=== PATIENT | female | born 1990 ===

== ENCOUNTER 2023-11-25 09:34 | Inpatient (IN) | payer MEDICAID, SELFPAY ==
--- NOTE | ~2023-11-25 | CT_ITS ---
EXAMINATION: CT ABDOMEN AND PELVIS WITH CONTRAST CLINICAL INFORMATION: Left lower quadrant abdominal pain. COMPARISON: No prior CT available. Correlation made with pelvic US was performed same day. TECHNIQUE: Multidetector volumetric images were obtained from the superior aspect of the liver through the pubic symphysis following administration 85 mL of Omnipaque 350 intravenous contrast. Sagittal and coronal reformatted images were obtained on the technologist's workstation. Oral contrast: No This CT examination was performed using dose optimization techniques as appropriate, variously including the following: *Automated exposure control *Adjustment of mA and/or kV according to patient size (this includes techniques or standardized protocols for targeted exams where dose is matched to indication/reason for exam; i.e. extremities or head) *Use of iterative reconstruction technique DLP: 951 mGy-cm FINDINGS: LUNG BASES: Lung bases are clear. Heart size is normal. No effusions. GE junction appears normal. LIVER, GALLBLADDER, AND BILIARY TREE: The liver is normal in size, shape, and attenuation. No focal hepatic lesion or biliary ductal dilatation is present. The gallbladder is unremarkable with no evidence of radiopaque gallstones, gallbladder wall thickening, or obvious pericholecystic inflammatory changes. PANCREAS: Unremarkable. SPLEEN: Unremarkable. ADRENAL GLANDS: Unremarkable. KIDNEYS AND URETERS: The kidneys are normal in size, shape, and attenuation. No hydronephrosis, hydroureter, or calculi seen. No perinephric stranding. BLADDER: Unremarkable. GASTROINTESTINAL TRACT: The appendix is dilated, with mucosal enhancement, and mild periappendiceal inflammatory changes. Diameter measures up to 11 mm. Findings are consistent with acute appendicitis. No evidence of rupture, or abscess. No definite appendicolith. Mild reactive thickening in the base of the cecum is noted. Otherwise, the remainder of the colon, rectum, small bowel, and duodenum appear normal. The stomach is decompressed. ABDOMINAL WALL: There is a small periumbilical fat-containing hernia just cephalad of the umbilicus. There appear to be surgical changes related to abdominal tuck procedure within the abdominal wall small inguinal hernias are suspected although not definitive. Hypertrophy of the piriformis muscles noted left greater than right. Correlate for piriformis syndrome. LYMPH NODES: No lymphadenopathy. VASCULAR: Unremarkable. PELVIC VISCERA: There is an IUD positioned in good position within the fundus of the uterus. There are bilateral ovarian dermoids present. The left measures up to 2.7 cm, and contains a portion of a tooth. The right ovarian dermoid measures up to 2.0 cm with no calcifications. No evidence of ovarian torsion or other adnexal abnormality otherwise. No free fluid in the pelvis. OSSEOUS STRUCTURES: No acute abnormality. Mild degenerative changes are present in both hip joints. Mild sclerosis of the iliac aspects of both SI joints, possibly from childbirth. No suspicious lytic or blastic abnormality. Mild diffuse disc bulge is present at L4-L5 and L5-S1. CT/CT abdomen pelvis w IV con IMPRESSION: -Acute appendicitis without complication. -Bilateral ovarian dermoids without evidence of acute ovarian torsion. -IUD in good position within the uterus. -Hypertrophy of the left greater than right piriformis muscles. Correlate for piriformis syndrome. -Ancillary findings as described above. Examination was not formally read until currently, due to extensive systems and Internet issues experienced at [facility] with loss of integration to the RIS and EMR systems. A congruent preliminary report was rendered by Dr. Moore at 11:05 PM, 11/25/2023. Findings were communicated to Dr. Tovar via secure text at 1:11 PM, 11/26/2023. Fleischner guidelines were followed.
--- NOTE | ~2023-11-25 | US_ITS ---
EXAMINATION: US PELVIS CLINICAL INFORMATION: Right pelvic pain. Rule out torsion. COMPARISON: CT the same day TECHNIQUE: Ultrasound of the pelvis is performed using both transabdominal and transvaginal transducers along with Doppler. Transvaginal imaging is performed due to inadequate visualization transabdominally. FINDINGS: The uterus is anteverted and measures 8 x 4 x 5 cm. There is an IUD in the uterus in satisfactory position. No focal uterine lesion. Endometrial thickness is normal measuring 3 mm. The right ovary measures 2.7 x 1.8 x 3.7 cm. The left ovary measures 3.4 x 2 x 2.8 cm. There are bilateral complex hypoechoic and hyperechoic adnexal lesions suggestive of dermoids measuring 2.1 x 1.7 x 2.4 cm on the right and 3 x 2 x 2.5 cm on the left. There is an adjacent 2.2 x 1.9 x 2.9 cm complex cystic component on the left with a cyst within cyst appearance. Arterial and venous flow is documented to both ovaries. There is no evidence of torsion. There is no fluid in the pelvis. US/US pelvic and transvaginal IMPRESSION: Bilateral ovarian dermoids. Flow documented to both ovaries. No evidence of torsion. IUD in the uterus in satisfactory position.
[2023-11-25 10:00] VITALS: BP 136/71; PULSE 70; RESP 18; TEMP 36; O2SAT 99; BMI 35.9
[2023-11-25 10:36] LABS: MANUAL DIFF FLAG NO
[2023-11-25 10:40] LABS: Basophils Absolute Auto 0.1 X10*3/uL (0.0-0.2); Basophils Percent Auto 0.5 % (0-2); Eosinophils Absolute Auto 0.2 X10*3/uL (0.0-0.4); Eosinophils Percent Auto 2.1 % (0-4); Hematocrit 41.2 % (37.0-47.0); Hemoglobin 13.9 g/dl (12.0-16.0); Imm Gran Abs Auto 0.03 X10*3/uL (0.00-0.03); Imm Gran Pct Auto 0.3 % (0.0-0.4); Lymphocytes Absolute Auto 2.1 X10*3/uL (1.2-4.9); Lymphocytes Percent Auto 19.8 % (20-40); Mean Corpuscular HGB Conc 33.7 g/dl (31.0-35.0); Mean Platelet Volume 9.4 fL (9.4-12.3); Monocytes Absolute Auto 0.5 X10*3/uL (0.1-1.2); Monocytes Percent Auto 4.8 % (2-11); Neutrophils Absolute Auto 7.6 x10*3/uL (2.0-8.3); Neutrophils Percent Auto 72.5 % (45-73); Platelet Count 244 X10*3/uL (160-400); Red Blood Count 4.79 X10*6/uL (4.20-5.50); White Blood Count 10.5 X10*3/uL (4.8-10.8)
[2023-11-25 10:57] LABS: Alanine Aminotransferase 15 U/L (0-31); Albumin Level 4.3 g/dL (3.5-5.0); Alkaline Phosphatase 64 U/L (39-117); Anion Gap 11 (12-20); Aspartate Amino Transferase 15 U/L (5-31); Bilirubin Total 0.6 mg/dL (0.0-1.0); Blood Urea Nitrogen 10 mg/dL (9-16); Calcium 9.1 mg/dL (8.4-10.2); Carbon Dioxide 26 mmol/L (22-29); Chloride 106 mmol/L (96-108); Creatinine Clr Calc Pharmacy 138.2; Estimated Glomerular Filt Rate > 60; Glucose Random 107 mg/dL (60-115); Lipase 6 U/L (8-78); Potassium 3.8 mmol/L (3.3-5.1); Sodium 139 mmol/L (135-145); Total Protein 7.8 g/dL (6.5-8.0)
[2023-11-25 20:05] VITALS: BP 135/75; PULSE 76; RESP 18; TEMP 36.7; O2SAT 98
--- NOTE | 2023-11-25 20:17 | ED_ITS ---
HPI - Abdominal Pain General Chief Complaint: Abdominal Pain Stated Complaint: LRQ pain Time Seen by Provider: 11/25/23 20:07 Source: patient Limitations: no limitations History of Present Illness HPI narrative: 33 years old with no significant past medical history, presents to the emergency room with right lower quadrant pain. Patient reports that pain started yesterday, initially periumbilical and then migrated to the right lower quadrant. Patient reports the pain is 10/10, associated with nausea or vomiting. Patient denies diarrhea, increased urinary frequency, dysuria or bloody stools. No chest pain, shortness of breath, chills or fever No headache, blurry vision, slurred speech. Patient reports that she has an IUD (Mirena) does not usually menstruate after iud insertion 6 months ago Related Data Allergies Allergy/AdvReac Type Severity Reaction Status Date / Time No Known Allergies Allergy Verified 11/25/23 10:04 Review of Systems Review of Systems Yes all other systems are reviewed and are negative [facility] Social History Social History Advance Directives: No Advance Directives Information Provided: Yes Do you have a plan to hurt others: No Plan Physical Exam ED Vital Signs: Vital Signs - 24 hr 11/25/23 10:00 11/25/23 20:05 Temperature 96.8 F 98.1 F Pulse Rate 70 76 Respiratory Rate 18 18 Blood Pressure 136/71 135/75 Pulse Oximetry 99 98 Oxygen Delivery Method Room Air Room Air BMI result Body Mass Index 35.9 General: Alert, Not in Distress Skin: No rash, warm HEENT: Atraumatic, No Exudate or Pharyngeal Erythema Resp: Normal Breath sounds bilaterally Cardio: Regular rate and Rhythm, Normal S1, S2 ABD: Abd tender guarding in RLQ but no rebound. Normal Bowel sounds. Hernández negative : No cva tenderness Neuro: Alert, oriented x4, PERRL Strenght 5/5 on all extremities Sensation is preserved in both lower and upper extremities Index to nose: normal Cranial Nerves II-XII grossly intact No dysarthria, or aphasia No neglet. Visual mello are normal bilaterally Psych: Cooperative, NO SI Course Reevaluation(s) Reevaluation #1: Based on bedside ultrasound we will order transvaginal ultrasound to rule out ovarian torsion Pending imaging, we will send out to Dr. Martinez Time: 20:31 Medical Decision Making Medical Decision Making MDM Narrative: Presented to the emergency room with right lower quadrant pain, history is concerning for appendicitis, patient is hemodynamically stable but reports pain 10/10 for which she will receive morphine and Tylenol in addition to IV fluids. At this time patient denies nausea vomiting therefore will hold on Zofran and other antiemetics. Plan CBC, CMP, urine CT abdomen and pelvis with contrast At this time I have low suspicion for ectopic due to the fact the patient has an IUD and does suspicion of ovarian torsion due to fissure of pain and history. I think it is appropriate to start with CT abdomen and pelvis and if negative will reconsider other possible differential diagnosis. Lab Data [facility] Lab Attestation statement: I reviewed the patient's lab results. 11/25/23 10:32 11/25/23 10:32 Labs: Lab Results 11/25/23 Range/Units 10:32 WBC 10.5 (4.8-10.8) X10*3/uL RBC 4.79 (4.20-5.50) X10*6/uL Hgb 13.9 (12.0-16.0) g/dl Hct 41.2 (37.0-47.0) % MCV 86.0 (80.0-98.0) fL MCH 29.0 (27.0-33.0) pg MCHC 33.7 (31.0-35.0) g/dl RDW 13.0 (11.0-16.0) % Plt Count 244 (160-400) X10*3/uL MPV 9.4 (9.4-12.3) fL Immature Gran % (Auto) 0.3 (0.0-0.4) % Neut % (Auto) 72.5 (45-73) % Lymph % (Auto) 19.8 L (20-40) % [place] % (Auto) 4.8 (2-11) % Eos % (Auto) 2.1 (0-4) % Baso % (Auto) 0.5 (0-2) % Lymph # (Auto) 2.1 (1.2-4.9) X10*3/uL [place] # (Auto) 0.5 (0.1-1.2) X10*3/uL Eos # (Auto) 0.2 (0.0-0.4) X10*3/uL Baso # (Auto) 0.1 (0.0-0.2) X10*3/uL Abs Immat Gran (auto) 0.03 (0.00-0.03) X10*3/uL Absolute Neuts (auto) 7.6 (2.0-8.3) x10*3/uL Absolute Nucleated RBC 0.000 (0.0-0.012) X10*3/uL Nucleated RBC % (auto) 0.0 (0.0-0.2) /100WBC Sodium 139 (135-145) mmol/L Potassium 3.8 (3.3-5.1) mmol/L Chloride 106 (96-108) mmol/L Carbon Dioxide 26 (22-29) mmol/L Anion Gap 11 L (12-20) BUN 10 (9-16) mg/dL Creatinine 0.78 (0.5-1.4) mg/dL Estim Creat Clear Calc 138.2 Estimated GFR > 60 Random Glucose 107 (60-115) mg/dL Calcium 9.1 (8.4-10.2) mg/dL Total Bilirubin 0.6 (0.0-1.0) mg/dL AST 15 (5-31) U/L ALT 15 (0-31) U/L Alkaline Phosphatase 64 (39-117) U/L Total Protein 7.8 (6.5-8.0) g/dL Albumin 4.3 (3.5-5.0) g/dL Lipase 6 L (8-78) U/L Independent Interpretation I performed an independent interpretation of an: Ultrasound (I personally performed and interpreted bedside ultrasound of the abdomen which showed normal gallbladder and right-sided 4.5 by 4.5 round hypo echogenic structure concerning for ovarian cyst. ) Medications Administered Generic Name Dose Route Start Last Admin Trade Name Freq PRN Reason Stop Dose Admin Sodium Chloride 1,000 mls @ 999 mls/hr 11/25/23 20:15 11/25/23 20:31 Ns IV 11/25/23 21:15 999 mls/hr .Q1H1M AUBREY Administration Discontinued Medications Generic Name Dose Route Start Last Admin Trade Name Freq PRN Reason Stop Dose Admin Acetaminophen 975 mg 11/25/23 20:15 11/25/23 20:31 Acetaminophen 325 Mg Tablet PO 11/25/23 20:16 975 mg ONCE ONE Administration Morphine Sulfate 4 mg 11/25/23 20:15 11/25/23 20:35 Morphine Sulfate 4 Mg/Ml Cartridge IVPUSH 11/25/23 20:16 Not Given ONCE ONE Protocol Discharge Plan Discharge Clinical Impression: Abdominal pain Patient Disposition: Still a Patient Print Language: Kyrgyz
[2023-11-25] MEDS: Acetaminophen 325 MG TABLET 975 MG PO (20:31)
[2023-11-25] MEDS: 0.9 % Sodium Chloride 1,000 ML 999 ML IV (20:31)
[2023-11-25 21:33] LABS: HCG Quantitative < 2 mIU/mL
[2023-11-25] MEDS: iohexoL 350 MG/ML 100 ML INFUS..BTL IV (22:31)
[2023-11-26] VITALS (19 sets, daily range): BP systolic 119–143; BP diastolic 57–88; PULSE 47–89; RESP 13–18; TEMP 36.1–36.8; O2SAT 95–100; BMI 35.9
[2023-11-26 00:01] LABS: Lactic Acid 1.2 mmol/L (0.5-2.0)
[2023-11-26] MEDS: Piperacillin Sodium/Tazobactam 3.375 GM in 0.9 % Sodium Chloride 50 ML IV ×3 (00:18→11:42)
[2023-11-26] MEDS: 0.9 % Sodium Chloride 1,000 ML 100 ML IVCONT ×3 (01:27→22:23)
[2023-11-26] MEDS: 0.9 % Sodium Chloride Flush 3 ML SYRINGE IVFLUSH (01:31)
--- NOTE | 2023-11-26 01:45 | PC.NURSE ---
Patient is alert and oriented x3, VSS. Patient denies any pain at present. He c/o 01/24 RUQ abdominal pain with movement. Patient medicated with Tylenol, level of pain reassessed , 01/24 with movement. This RN offered patient Morphine IV, patient refused. Patient is aware of NPO status. She ambulates independently with a steady gait, skin is intact. 1 L NS infusing at 100 mL/hr via IV line in R AC. Call holcomb in patient's reach, plan of care ongoing.
[2023-11-26 05:34] LABS: MANUAL DIFF FLAG NO
[2023-11-26 05:36] LABS: Basophils Percent Auto 0.4 % (0-2); Eosinophils Absolute Auto 0.2 X10*3/uL (0.0-0.4); Eosinophils Percent Auto 2.3 % (0-4); Hematocrit 39.7 % (37.0-47.0); Imm Gran Abs Auto 0.02 X10*3/uL (0.00-0.03); Imm Gran Pct Auto 0.2 % (0.0-0.4); Lymphocytes Absolute Auto 2.3 X10*3/uL (1.2-4.9); Lymphocytes Percent Auto 27.1 % (20-40); Mean Corpuscular HGB Conc 32.7 g/dl (31.0-35.0); Mean Corpuscular Hemoglobin 28.3 pg (27.0-33.0); Mean Corpuscular Volume 86.5 fL (80.0-98.0); Mean Platelet Volume 9.8 fL (9.4-12.3); Monocytes Absolute Auto 0.5 X10*3/uL (0.1-1.2); Monocytes Percent Auto 5.9 % (2-11); Neutrophils Absolute Auto 5.4 x10*3/uL (2.0-8.3); Neutrophils Percent Auto 64.1 % (45-73); Platelet Count 220 X10*3/uL (160-400); Red Blood Count 4.59 X10*6/uL (4.20-5.50); Red Cell Distribution Width 12.9 % (11.0-16.0); White Blood Count 8.4 X10*3/uL (4.8-10.8)
[2023-11-26 06:24] LABS: UPreg QC Valid YES; Urine Pregnancy NEGATIVE (NEGATIVE)
--- NOTE | 2023-11-26 08:02 | PHA.MEDREC ---
Pharmacy Consult ? Medication Reconciliation Pharmacy has completed the medication reconciliation.
--- NOTE | 2023-11-26 08:19 | PM.HPGS ---
History of Present Illness History of Present Illness Date of Service: 11/26/23 <Gloria Deng PA-C - Last Filed: 11/26/23 08:28> 11/26/23 <Cristian Tovar MD - Last Filed: 11/26/23 08:34> Chief complaint: Abdominal pain <Gloria Deng PA-C - Last Filed: 11/26/23 08:28> Narrative: Claudette Hendricks is a 33 year old female with no significant PMH who developed acute onset of diffuse abdominal pain on Saturday after eating. She took pepto bismol thinking the pain was due to the food without relief. Yesterday, the pain localized to the RLQ and persisted and became severe. She therefore decided to seek evaluation in the ED. Work up included CBC, BMP, LFTs which were WNL. CT scan abd pelvis was obtained - official read pending but on review shows dilated, thickened appendix. She has continued pain this morning. She denies nausea, vomiting, diarrhea, constipation, fevers, chills, similar episodes of pain. She denies past surgical history. She had an uneventful vaginal of her daughter 6 months ago. <Gloria Deng PA-C - Last Filed: 11/26/23 08:28> Review of Systems Constitutional: Constitutional: Denies chills and Denies fever(s) <Gloria Deng PA-C - Last Filed: 11/26/23 08:28> ENT: Denies dizziness <Gloria Deng PA-C - Last Filed: 11/26/23 08:28> Cardiovascular: Cardiovascular: Denies chest pain, Denies palpitations and Denies dyspnea <Gloria Deng PA-C - Last Filed: 11/26/23 08:28> Respiratory: Respiratory: Denies cough and Denies dyspnea <BUSTER Parra Last Filed: 11/26/23 08:28> Gastrointestinal: Gastrointestinal: Reports as per HPI <BUSTER Parra Last Filed: 11/26/23 08:28> Genitourinary: Genitourinary: Denies dysuria and Denies vaginal discharge <BUSTER Parra Last Filed: 11/26/23 08:28> Integumentary/Breasts: Skin/Breast: Denies rash and Denies jaundice <BUSTER Parra Last Filed: 11/26/23 08:28> Neurologic: Denies dizziness <BUSTER Parra Last Filed: 11/26/23 08:28> Endocrine: Endocrine: Denies palpitations <BUSTER Parra Last Filed: 11/26/23 08:28> [facility] Social History Social History: Social History Household Members: Family Housing: Apartment Do you presently have visiting nurse or other home services: No Patient Tobacco Use Status: Never used Tobacco Smoked in Last 30 Days: No Use of substances other than those prescribed or required for medical reasons: No Currently Displaying Signs/Symptoms of Drug Intoxication Withdrawal: No Any prior treatment program specific to substance use: No Have you been hit, kicked, punched, or otherwise hurt by someone within the past year? If so, by whom?: No Do you feel safe in your current relationship?: Yes Is there a partner from a previous relationship who is making you feel unsafe now?: No Are you made to feel afraid or neglected: No Advance Directives: No Advance Directives Information Provided: Yes Do you have a plan to hurt others: No Plan Recently lost weight without trying: No How much weight loss: Not applicable Eating poorly because of decreased appetite: No Nutrition screen score: 0 Nutrition Risks: No Nutritional Risk Patient : No : No Poor oral hygiene: No <BUSTER Parra Last Filed: 11/26/23 08:28> Meds Allergies/Adverse reactions: Allergies Allergy/AdvReac Type Severity Reaction Status Date / Time No Known Allergies Allergy Verified 11/25/23 10:04 <BUSTER Parra Last Filed: 11/26/23 08:28> Active Medications: Current Medications Sodium Chloride (Ns) 1,000 mls @ 100 mls/hr IVCONT .Q10H [facility] Last Admin: 11/26/23 01:27 Dose: 100 mls/hr Piperacillin Sod/Tazobactam (Sod 3.375 gm/ Sodium Chloride) 50 mls @ 100 mls/hr IV Q6H [facility] Last Infusion: 11/26/23 06:03 Dose: Infused Morphine Sulfate (Morphine Sulfate 4 Mg/Ml Cartridge) 3 mg IVPUSH Q3H PRN; Protocol PRN Reason: Pain, Severe (Pain Scale 7-10) Ondansetron HCl (Ondansetron Hcl 4 Mg/2 Ml Vial) 4 mg IVPUSH Q6H PRN PRN Reason: Nausea Sodium Chloride (0.9 % Sodium Chloride Flush 3 Ml Syringe) 3 [facility] Last Admin: 11/26/23 01:31 Dose: 3 ml <BUSTER Parra Last Filed: 11/26/23 08:28> Home medications: Home Medications ?Medication ?Instructions ?Recorded ?Confirmed ?Last Taken ?Type No Known Home Meds 11/26/23 11/26/23 Unknown History <BUSTER Parra Last Filed: 11/26/23 08:28> Physical Exam Vital Signs: Vital Signs: Last Vital Signs Temp 97.7 F 11/26/23 07:45 Pulse 47 L 11/26/23 07:45 Resp 16 11/26/23 07:45 BP 126/74 11/26/23 07:45 Pulse Ox 100 11/26/23 07:45 O2 Del Method Room Air 11/26/23 07:45 BMI result Body Mass Index 35.9 <BUSTER Parra Last Filed: 11/26/23 08:28> Const: General: comfortable, no acute distress and alert <BUSTER Parra Last Filed: 11/26/23 08:28> Orientation/consciousness: patient oriented x3 <BUSTER Parra Last Filed: 11/26/23 08:28> Neck: Neck: Yes no JVD <BUSTER Parra Last Filed: 11/26/23 08:28> Resp: Effort & Inspection: normal respiratory effort <BUSTER Parra Last Filed: 11/26/23 08:28> Cardio: Rate: regular rate <BUSTER Parra Last Filed: 11/26/23 08:28> GI: Inspection: No distended and No scar <Gloria Deng PA-C - Last Filed: 11/26/23 08:28> Palpation (GI): Soft to palpation and Tenderness to palpation present (GI) in the RLQ (moderate RLQ and right midabdominal tenderness); with no rebound tenderness and Rovsing's sign negative <Gloria Deng PA-C - Last Filed: 11/26/23 08:28> Skin: General skin exam: no rashes or lesions noted <BUSTER Parra Last Filed: 11/26/23 08:28> Neuro: General: patient oriented x3 and moves all extremities <BUSTER Parra Last Filed: 11/26/23 08:28> Results Results Labs: Short CBC 11/25/23 11/26/23 Range/Units 10:32 05:29 WBC 10.5 8.4 (4.8-10.8) X10*3/uL Hgb 13.9 13.0 (12.0-16.0) g/dl Hct 41.2 39.7 (37.0-47.0) % Plt Count 244 220 (160-400) X10*3/uL BMP 11/25/23 10:32 Sodium 139 Potassium 3.8 Chloride 106 Carbon Dioxide 26 BUN 10 Creatinine 0.78 Calcium 9.1 Liver Function 11/25/23 Range/Units 10:32 Total Bilirubin 0.6 (0.0-1.0) mg/dL AST 15 (5-31) U/L ALT 15 (0-31) U/L Alkaline Phosphatase 64 (39-117) U/L Albumin 4.3 (3.5-5.0) g/dL Urine 11/26/23 Range/Units 05:50 Urine Test NEGATIVE (NEGATIVE) <BUSTER Parra Last Filed: 11/26/23 08:28> Abdomen CT scan report/results: image reviewed <BUSTER Parra Last Filed: 11/26/23 08:28> Assessment and Plan (1) Acute appendicitis: Status: Acute <BUSTER Parra Last Filed: 11/26/23 08:28> has had RLQ since Saturday night CT cw acute appendicitis - official report not available tender on the RLQ I reviewed with her technique of lap appy, poss. open I reviewed the risks incl but not limited to bleeding, infections, injury to other organs she understands option of IV abx only she wants to proceed with lap appendectomy poss. open seen and examined independently exam benign otherwise <Cristian Tovar MD - Last Filed: 11/26/23 08:34> 33 year old healthy female with acute onset of abdominal pain that localized to the RLQ yesterday with CT scan showing dilated thickened appendix. Clinical picture of early acute appendicitis. The patient has been admitted to the surgical service for further treatment and started on IV zosyn, IVF. Treatment options were discussed including IV abx and observation versus proceeding with appendectomy. Risks, benefits, alternatives of laparoscopic possible open appendectomy were reviewed with the patient and included but not limited to bleeding, infection, numbness, pain, scarring, bowel or bladder injury or staple line leak and the patient wishes to proceed. She has been added onto the OR schedule for today. <Gloria Deng PA-C - Last Filed: 11/26/23 08:28> Quality Stroke Does the patient have a stroke diagnosis?: No <Gloria Deng PA-C - Last Filed: 11/26/23 08:28> VTE Prior VTE?: No <Gloria Deng PA-C - Last Filed: 11/26/23 08:28> VTE Risk Level:: Medical - low <Gloria Deng PA-C - Last Filed: 11/26/23 08:28> VTE Device Contraindication: Treatment Not Indicated <Gloria Deng PA-C - Last Filed: 11/26/23 08:28> VTE Drug Contraindication: Treatment Not Indicated <Gloria Deng PA-C - Last Filed: 11/26/23 08:28> Procedures Date of Service Date of Service: 11/26/23 <Gloria Deng PA-C - Last Filed: 11/26/23 08:28> 11/26/23 <Cristian Tovar MD - Last Filed: 11/26/23 08:34>
--- NOTE | 2023-11-26 09:51 | MHC.CM.PN ---
Pt is independent has a ride homew ill not need services when dcd dc plan home no servies
--- NOTE | 2023-11-26 14:40 | HO.ANESPROP2 ---
HPI - Anesthesia Eval Consult details Narrative: marck ROSAS Active Problems Active Problems: All Active Problems Acute appendicitis (Acute) Abdominal pain (Acute) Family History Family history of problems with anesthesia: No Surgical History Surgical History Hx of bilateral breast reduction surgery History of Problems with Anesthesia: No Social History Social History Household Members: Family Housing: Apartment Do you presently have visiting nurse or other home services: No Patient Tobacco Use Status: Never used Tobacco Smoked in Last 30 Days: No Use of substances other than those prescribed or required for medical reasons: No Currently Displaying Signs/Symptoms of Drug Intoxication Withdrawal: No Any prior treatment program specific to substance use: No Have you been hit, kicked, punched, or otherwise hurt by someone within the past year? If so, by whom?: No Do you feel safe in your current relationship?: Yes Is there a partner from a previous relationship who is making you feel unsafe now?: No Are you made to feel afraid or neglected: No Are you DNR?: No Advance Directives: No Advance Directives Information Provided: Yes Do you have a plan to hurt others: No Plan Recently lost weight without trying: No How much weight loss: Not applicable Eating poorly because of decreased appetite: No Nutrition screen score: 0 Nutrition Risks: No Nutritional Risk Patient : No FDLMP: its sporadic : No Poor oral hygiene: No service: No Meds Allergies Allergy/AdvReac Type Severity Reaction Status Date / Time No Known Allergies Allergy Verified 11/26/23 12:42 Active Medications: Current Medications Sodium Chloride (Ns) 1,000 mls @ 100 mls/hr IVCONT .Q10H [facility] Last Admin: 11/26/23 11:42 Dose: 100 mls/hr Piperacillin Sod/Tazobactam (Sod 3.375 gm/ Sodium Chloride) 50 mls @ 100 mls/hr IV Q6H [facility] Last Infusion: 11/26/23 12:20 Dose: Infused Morphine Sulfate (Morphine Sulfate 4 Mg/Ml Cartridge) 3 mg IVPUSH Q3H PRN; Protocol PRN Reason: Pain, Severe (Pain Scale 7-10) Ondansetron HCl (Ondansetron Hcl 4 Mg/2 Ml Vial) 4 mg IVPUSH Q6H PRN PRN Reason: Nausea Sodium Chloride (0.9 % Sodium Chloride Flush 3 Ml Syringe) 3 ml IVFLUSH QSHIFT [facility] Last Admin: 11/26/23 08:48 Dose: Not Given Home Medications ?Medication ?Instructions ?Recorded ?Confirmed ?Last Taken ?Type No Known Home Meds 11/26/23 11/26/23 Unknown History Exam Height,Weight and Vital Signs: Height 5 ft 9 in Weight 110.2 kg Last Vital Signs Temp 98.3 F 11/26/23 12:35 Pulse 57 11/26/23 12:35 Resp 18 11/26/23 12:35 BP 132/60 11/26/23 12:35 Pulse Ox 100 11/26/23 12:35 O2 Del Method Room Air 11/26/23 12:35 Pertinent Lab Results Pertinent Lab Results: Laboratory Tests 11/25/23 11/25/23 11/26/23 10:32 23:42 05:29 WBC 10.5 8.4 RBC 4.79 4.59 Hgb 13.9 13.0 Hct 41.2 39.7 MCV 86.0 86.5 MCH 29.0 28.3 MCHC 33.7 32.7 RDW 13.0 12.9 Plt Count 244 220 MPV 9.4 9.8 Immature Gran % (Auto) 0.3 0.2 Neut % (Auto) 72.5 64.1 Lymph % (Auto) 19.8 L 27.1 Brooke % (Auto) 4.8 5.9 Eos % (Auto) 2.1 2.3 Baso % (Auto) 0.5 0.4 Lymph # (Auto) 2.1 2.3 Brooke # (Auto) 0.5 0.5 Eos # (Auto) 0.2 0.2 Baso # (Auto) 0.1 0.0 Abs Immat Gran (auto) 0.03 0.02 Absolute Neuts (auto) 7.6 5.4 Absolute Nucleated RBC 0.000 0.000 Nucleated RBC % (auto) 0.0 0.0 Sodium 139 Potassium 3.8 Chloride 106 Carbon Dioxide 26 Anion Gap 11 L BUN 10 Creatinine 0.78 Estim Creat Clear Calc 138.2 Estimated GFR > 60 Random Glucose 107 Lactic Acid 1.2 Calcium 9.1 Total Bilirubin 0.6 AST 15 ALT 15 Alkaline Phosphatase 64 Total Protein 7.8 Albumin 4.3 Lipase 6 L Beta HCG, Quant < 2 Urine Test 11/26/23 05:50 WBC RBC Hgb Hct MCV MCH MCHC RDW Plt Count MPV Immature Gran % (Auto) Neut % (Auto) Lymph % (Auto) Brooke % (Auto) Eos % (Auto) Baso % (Auto) Lymph # (Auto) Brooke # (Auto) Eos # (Auto) Baso # (Auto) Abs Immat Gran (auto) Absolute Neuts (auto) Absolute Nucleated RBC Nucleated RBC % (auto) Sodium Potassium Chloride Carbon Dioxide Anion Gap BUN Creatinine Estim Creat Clear Calc Estimated GFR Random Glucose Lactic Acid Calcium Total Bilirubin AST ALT Alkaline Phosphatase Total Protein Albumin Lipase Beta HCG, Quant Urine Test NEGATIVE Airway Heart: rrr Lungs: cta Assessment and Plan Assessment Anesthesia Assessment: Anesthesia Plan Discussed and Chart Reviewed Final Anesthetic Review Family History of Problems with Anesthesia: No History of Problems with Anesthesia: No NPO: Yes ASA Class: II Final Preanesthetic Review: No Changes in Pt Med Stat, Meds/Allgs Chart Reviewed, Consent Obtained/Reviewed and Anes Risks/Benef Reviewed Patient Risk: Low Procedure Risk: Low Anesthetic Plan Anesthetic Plan: GA Disposition: Standard PACU
--- NOTE | 2023-11-26 14:58 | W.PM.OPN ---
Operative Note Operative Note Date of Service: 11/26/23 Narrative: Preop diagnosis: Acute appendicitis Postop diagnosis: Acute appendicitis, with an erythematous and edematous appendix Procedure: Laparoscopic appendectomy Surgeon: Cristian Tovar MD instructional assistant: MARYSOL Deng The patient is a 33 year female with right lower quadrant pain, with CT scan findings consistent with acute appendicitis. She understood technique of laparoscopic appendectomy. She was aware of the risks, benefits, and alternatives She was brought to the operating room. She was placed supine under general anesthesia via endotracheal tube. A Nunez catheter was inserted. The abdomen was prepped and draped in the usual sterile fashion. A surgical time-out was done. The patient was receiving scheduled IV antibiotics A short infraumbilical incision was made on the skin using a blade 15. This was carried down through the full-thickness of the skin subcutaneous fat down to the fascia. The fascia was incised. The peritoneum was entered. Through this incision a Mena port was introduced. Pneumoperitoneum was introduced to a pressure of 15 mm Hg. From here on the rest of procedure was done under vision with the 5 mm laparoscope. With laparoscopic visualization inserted a 5 mm port in the left lower quadrant through a small stab incision. A 5 mm port was introduced a small incision in the suprapubic margin. Graspers were placed through the working ports. The patient was placed in a steep head-down and [id number] position. The gallbladder was immediately seen going down into the pelvis. This was erythematous it was an edematous. I was able to apply a grasper gently on the distal 3rd and this was used to retract the appendix and put it on stretch. By doing so was able to visualize the base. I created a mesenteric window at the base along the cecum. I used the [place] dissector to create a mesenteric window. I then position the Endo-JENNIFER 30 mm stapler across the base to this mesenteric window. This was fired to transect the appendix. I then proceeded to theLigaSure to divide the attached mesentery serially until the entire appendix was completely . The appendix was retrieved through an endobag through the umbilical incision. I reinserted all ports and re-insufflated. I visualized the staple line and this appeared to intact. There was note of good hemostasis. I observed all 4 quadrants laparoscopically. There was no evidence of any bowel injury or any other pathology I pulled the omentum down to the area of dissection I desufflated the port sites. I then removed all ports under vision with laparoscope. The umbilical port was removed last The fascia of the umbilical incision was closed with a [id number] Polysorb 0 stitch. Skin closure was achieved on all incisions using Polysorb 4-0 subcuticular running sutures. All incisions were infiltrated with Marcaine 0.5% for postop analgesia. Dressings were applied to the procedure was then completed The patient tolerated the procedure well. There were no immediate complications. Initial and final counts of sponges and instruments were correct. Estimated blood loss about 50 cc The patient was extubated without difficulty and transferred to the recovery room with stable vital signs
[2023-11-26] MEDS: Morphine Sulfate 2 MG/ML CARTRIDGE 3 MG IVPUSH (15:19)
--- NOTE | 2023-11-26 15:25 | PM.EVENT ---
Event Note Date of Service: 11/26/23 Event Note: seen postop s/p lap appy stable VS c/o throat pain - from ET tube abd soft pain mgt explained to pt above updaated Time Spent With Patient Time: Total time managing care of this patient today ____ minutes.
[2023-11-26] MEDS: fentaNYL citrate/PF 100 MCG/2 ML VIAL 25 MCG IVPUSH ×2 (15:32→15:37)
[2023-11-26] MEDS: Acetaminophen 1,000 MG/100 ML PIGGYBACK 400 MG IV ×2 (17:45→23:35)
[2023-11-27 03:00] VITALS: BP 113/56; PULSE 55; RESP 16; TEMP 36.4; O2SAT 98
[2023-11-27] MEDS: Acetaminophen 1,000 MG/100 ML PIGGYBACK 400 MG IV (05:20)
[2023-11-27 07:00] VITALS: BP 114/55; PULSE 71; RESP 16; TEMP 36.2; O2SAT 97
--- NOTE | 2023-11-27 07:48 | PM.PNGS ---
Subjective Subjective Date of Service: 11/27/23 <Gloria Deng PA-C - Last Filed: 11/27/23 07:50> 11/27/23 <Cristian Tovar MD - Last Filed: 11/27/23 08:13> Interval history: feels improved, RLQ pain resolved and now with some mild incisional tenderness. Tolerating solid diet without nausea or vomiting. OOB to bathroom without difficulty. Wants to go home. <Gloria Deng PA-C - Last Filed: 11/27/23 07:50> Physical Exam Vital Signs: Vital Signs: Last Vital Signs Temp 97.1 F 11/27/23 07:00 Pulse 71 11/27/23 07:00 Resp 16 11/27/23 07:00 BP 114/55 L 11/27/23 07:00 Pulse Ox 97 11/27/23 07:00 O2 Del Method Room Air 11/27/23 07:00 BMI result Body Mass Index 35.9 <Gloria Deng PA-C - Last Filed: 11/27/23 07:50> Const: General: comfortable, no acute distress and alert <Gloria Deng PA-C - Last Filed: 11/27/23 07:50> Resp: Effort & Inspection: normal respiratory effort <BUSTER Parra Last Filed: 11/27/23 07:50> GI: Inspection: No distended and Yes incision (bandaids intact and clean) <Gloria Deng PA-C - Last Filed: 11/27/23 07:50> Palpation (GI): Soft to palpation, Tenderness to palpation present (GI) (mild incisional) and no guarding <Gloria Deng PA-C - Last Filed: 11/27/23 07:50> Skin: General skin exam: no rashes or lesions noted <BUSTER Parra Last Filed: 11/27/23 07:50> Objective Data Active Medications Sodium Chloride (Ns) 1,000 mls @ 100 mls/hr IVCONT .Q10H [facility] Last Admin: 11/27/23 06:35 Dose: Not Given Documented By: TAYLOR Non-Admin Reason: IV Running Acetaminophen (Ofirmev) 1,000 mg in 100 mls @ 400 mls/hr IV Q6H [facility] Last Infusion: 11/27/23 05:36 Dose: Infused Documented By: TAYLOR Ketorolac Tromethamine (Ketorolac Tromethamine 30 Mg/Ml Vial) 30 mg IVPUSH Q6H PRN PRN Reason: abdominal pain Stop: 12/01/23 17:26 Morphine Sulfate (Morphine Sulfate 2 Mg/Ml Cartridge) 3 mg IVPUSH Q3H PRN; Protocol PRN Reason: Pain, Severe (Pain Scale 7-10) Last Admin: 11/26/23 15:19 Dose: 3 mg Documented By: BRIDGET Morphine Sulfate (Morphine Sulfate 4 Mg/Ml Cartridge) 4 mg IVPUSH Q4H PRN; Protocol PRN Reason: Pain, Severe (Pain Scale 7-10) Ondansetron HCl (Ondansetron Hcl 4 Mg/2 Ml Vial) 4 mg IVPUSH Q6H PRN PRN Reason: Nausea Oxycodone HCl (Oxycodone Hcl Immed Release 5 Mg Tablet) 5 mg PO Q4H PRN PRN Reason: Pain, Moderate(Pain Scale 4-6) Sodium Chloride (0.9 % Sodium Chloride Flush 3 Ml Syringe) 3 ml IVFLUSH QSHIFT [facility] Last Admin: 11/27/23 00:50 Dose: Not Given Documented By: TAYLOR Non-Admin Reason: IV Running <Gloria Deng PA-C - Last Filed: 11/27/23 07:50> Labs CBC & Chem 7: 11/26/23 05:29 11/25/23 10:32 <Gloria Deng PA-C - Last Filed: 11/27/23 07:50> Microbiology Microbiology Results: Microbiology 11/25/23 23:42 Blood Culture - Preliminary Blood - Venous No growth after 24 hours. 11/25/23 23:42 Blood Culture - Preliminary Blood - Venous No growth after 24 hours. <Gloria Deng PA-C - Last Filed: 11/27/23 07:50> Procedures Date of Service Date of Service: 11/27/23 <Gloria Deng PA-C - Last Filed: 11/27/23 07:50> 11/27/23 <Cristian Tovar MD - Last Filed: 11/27/23 08:13> Progress Note: A&P Assessment and plan (1) Acute appendicitis: Status: Acute <Gloria Deng PA-C - Last Filed: 11/27/23 07:50> Assessment and Plan: feels well this morning good pain control tolerating diet she says she is ready to be discharged abdomen soft and benign okay to DC home instructions reinforced with patient seen and examined independently <Cristian Tovar MD - Last Filed: 11/27/23 08:13> (2) S/P laparoscopic appendectomy: Status: Acute <Gloria Deng PA-C - Last Filed: 11/27/23 07:50> Assessment and Plan: POD #1 s/p lap appy. Doing well post op- comfortable with good pain control. VSS. Abd benign with appropriate post op tenderness and clean dressings. Feels ready for dc. Stable for dc to home today. F/u in office in 2 weeks. <Gloria Deng PA-C - Last Filed: 11/27/23 07:50> Time Spent With Patient Time: Total time managing care of this patient today ____ minutes. <Gloria Deng PA-C - Last Filed: 11/27/23 07:50> Quality Stroke Does the patient have a stroke diagnosis?: No <Gloria Deng PA-C - Last Filed: 11/27/23 07:50> VTE Prior VTE?: No <Gloria Deng PA-C - Last Filed: 11/27/23 07:50> VTE Risk Level:: Medical - low <Gloria Deng PA-C - Last Filed: 11/27/23 07:50> VTE Device Contraindication: Treatment Not Indicated <Gloria Deng PA-C - Last Filed: 11/27/23 07:50> VTE Drug Contraindication: Treatment Not Indicated <Gloria Deng PA-C - Last Filed: 11/27/23 07:50>
--- NOTE | 2023-11-27 09:07 | P.DS_ITS ---
DS: Providers Provider Date of Service: 11/27/23 Date of admission: 11/25/23 23:36 Date of discharge: 11/27/23 Primary care physician: Ramin Physician Attending physician on admission: Cristian Tovar Attending physician on discharge: Cristian Tovar DS: Diagnosis Discharge Diagnosis (1) Acute appendicitis: Status: Acute (2) S/P laparoscopic appendectomy: Status: Acute DS: Summary Hospital Course Hospital Course: HPI AT ADMISSION: Claudette Hendricks is a 33 year old female with no significant PMH who developed acute onset of diffuse abdominal pain on Saturday after eating. She took pepto bismol thinking the pain was due to the food without relief. Yesterday, the pain localized to the RLQ and persisted and became severe. She therefore decided to seek evaluation in the ED. Work up included CBC, BMP, LFTs which were WNL. CT scan abd pelvis was obtained - official read pending but on review shows dilated, thickened appendix. She has continued pain this morning. She denies nausea, vomiting, diarrhea, constipation, fevers, chills, similar episodes of pain. She denies past surgical history. She had an uneventful vaginal of her daughter 6 months ago. HOSPITAL COURSE: The patient was admitted to the surgical service for further treatment of the acute appendicitis. She elected to proceed with laparoscopic appendectomy. She was added onto the OR schedule for that day. On 11/26/23, a laparoscopic appendectomy was performed by Dr. Tovar without complication. The patient tolerated the procedure well. She had an uncomplicated recovery course. On POD #1, she felt well and was tolerating a solid diet without nausea or vomiting, had good pain control and was ambulating without difficulty. She was hemodynamically stable. Her abdomen was benign with appropriate post op tenderness and clean and intact dressings. She felt ready for discharge. She was discharged to home on 11/27/23 in stable condition. She is to follow up in the office in 2 weeks. Status at Discharge Functional status at discharge: independent ambulation Overall status at discharge: patient is progressing back to baseline Time Attestation Discharge Coordination Time (in mins): 25 Quality: Safe Use of Opioids Does Pt have an Active Cancer Diagnosis on the Problem List?: No Quality: Stroke Does the patient have a stroke diagnosis?: No Physical Exam Vital Signs: Vital Signs: Last Vital Signs Temp 97.1 F 11/27/23 07:00 Pulse 71 06/12/24 07:00 Resp 16 11/27/23 07:00 BP 114/55 L 11/27/23 07:00 Pulse Ox 97 11/27/23 07:00 O2 Del Method Room Air 11/27/23 07:00 BMI result Body Mass Index 35.9 Const: General: comfortable, no acute distress and alert Orientation/consciousness: patient oriented x3 Resp: Effort & Inspection: normal respiratory effort GI: Inspection: No distended and Yes incision (clean, intact) Palpation (GI): Soft to palpation, Tenderness to palpation present (GI) (mild incisional) and no guarding Skin: General skin exam: no rashes or lesions noted Neuro: General: patient oriented x3 and moves all extremities DS: Data Data Completed and Pending Pending studies at discharge: Pending at discharge 11/26/23 14:46 Surgical [PTH] Routine Labs on day of discharge: Preliminary micro results at discharge 11/25/23 23:42 Blood Culture - Preliminary Blood - Venous No growth after 24 hours. 11/25/23 23:42 Blood Culture - Preliminary Blood - Venous No growth after 24 hours. Discharge Plan Discharge Anticipated Discharge Date/Time: 11/27/23 14:13 Patient Disposition: Home, Self-Care Discharge Diagnosis: acute appendicitis Referrals: Cristian Tovar MD [Physician] - 2 Weeks Physician,None [Primary Care Provider] - 1 Week Discharge Medications: New docusate sodium [Colace] 100 mg capsule 100 mg PO BID PRN (Reason: constipation) Qty: 30 0RF oxycodone 5 mg tablet 5 mg PO Q4H PRN (Reason: pain (scale score 7-10)) Qty: 24 0RF Rx Instructions: Partial Fill upon patient request. ibuprofen 600 mg tablet 600 mg PO Q6H PRN (Reason: pain) Qty: 30 0RF Discharge Orders: Discharge Order (Routine); Ordered 11/27/23 Ordered By: Gloria Deng Diet: Advance to usual diet Activity on Discharge: No heavy lifting Stand Alone Forms: Patient Portal Discharge page Print Language: Estonian Activity Restrictions/Additional Instructions: If the incision area is tender, you may apply an ice pack for short intervals (No more than 20 minutes on, followed by at least 20 minutes off). Do not apply heat. Do not use creams, lotions, or topical antibiotics. These can cause infection or allergic reaction. Ok to shower 24 hours after your surgery. Remove bandaids in 2 days and replace. You have steri strips (small white cloth strips) covering your incision- these will fall off ~1 week. Follow up in office with Dr. Tovar in 2 weeks. ([phone]) No heavy lifting (>10-20lbs) or strenuous activity! Call Your Doctor If: -Your temperature exceeds 101.5? F -You experience excessive pain or swelling -You have an unexpected reaction to medication -You have excessive bleeding -You experience continued vomiting/nausea -Your incision begins to separate -Your incision shows signs of infection such as increased redness, swelling, excessive pain, drainage (light blood or clear fluid is normal) or heat Care Plan Goals: Return to baseline health and resume normal activities following recovery period. Health Concerns: acute appendicitis Plan of Treatment: s/p laparoscopic appendectomy Assessment: Doing well post op.
[2023-11-27] MEDS: Acetaminophen 325 MG TABLET 650 MG PO (09:57)
--- NOTE | 2023-11-27 15:31 | HO.POSTANES ---
Post Anesthesia Evaluation Post Anesthesia Evaluation Date of Service: 11/27/23 Vital Signs: Vital Signs Temp Pulse Resp BP Pulse Ox O2 Del Method 11/27/23 07:00 97.1 F 71 16 114/55 L 97 Room Air Anesthesia: General Endotracheal-GETA Mental Status: Awake Pain Control: Satisfactory Nausea/Vomiting: None Hydration: Adequate Anesthesia-Related Issues: No Anes. Related Issues
== END 2023-11-27 10:43 | disposition home or self-care (01) | DRG 234 ==
LOC: HO.ED 20:59 → HO.EDOVER 23:49 → HO.S3 11-26 01:17
PROVIDERS: Student in an Organized Health Care Education/Training Program; Admitting Provider Surgery; Emergency Provider Student in an Organized Health Care Education/Training Program; Visit Provider Surgery
PROC: 0DTJ4ZZ Resection of Appendix, Percutaneous Endoscopic Approach (ICD-10-PCS; CPT 44970; principal; 2023-11-26 13:30)
DX: K35.80 Unspecified acute appendicitis (principal)
CPT/HCPCS: 44970; 36415; 74177; 76830; 76856; 80053; 81025; 83605; 83690; 84702; 85025; 87040; 88304; 99221; 99285; J0131; J1100; J2250; J2270; J2405; J2543; J2704; J2795; J3010; Q9967

== ENCOUNTER → 2023-11-25 23:36 | Outpatient (BNV) | payer MEDICAID, SELFPAY | PROVIDERS: Admitting Provider Surgery; Emergency Provider Student in an Organized Health Care Education/Training Program; Visit Provider Surgery | DX: K35.80 Unspecified acute appendicitis (principal); Z90.49 Acquired absence of other specified parts of digestive tract | CPT/HCPCS: 44970; 99024; 99222; 99499 ==

== ENCOUNTER 2023-12-18 15:47 | Outpatient (AMB) | payer MEDICAID, SELFPAY ==
--- NOTE | 2023-12-18 15:48 | A.OFFVIS_ITS ---
Intake Visit Reasons: s/p ER appendectomy Intake Note: This patient presents for a post-op assessment status post Laparoscopic appendectomy. Patient c/o; reports good oral intake , reports all incisions are well healed. Psych Coordinator Required: No Accompanied by: Self / Same As Patient Allergies No Known Allergies Allergy (Verified 12/18/23 15:51) HPI HPI s/p ER appendectomy: Details: 33-year-old female here for postop visit. She had undergone laparoscopic appendectomy for acute appendicitis last 11/26/2023. She tolerated the procedure well and was discharged on postop day 1. She currently says she feels well overall and denies significant complaints. [facility] Surgical History History of laparoscopic appendectomy (~11/26/23) Hx of bilateral breast reduction surgery Social History Household Members: Family Housing: Apartment Do you presently have visiting nurse or other home services: No Comment: COUNT CORRECT Patient Tobacco Use Status: Never used Tobacco service: No Review of Systems Const Denies chills and Denies fever(s) Card Denies chest pain, Denies dyspnea and Denies dyspnea on exertion Resp Denies cough, Denies dyspnea and Denies dyspnea on exertion GI Denies hematochezia and Denies change in bowel habits Denies hematuria Musc Denies back pain and Denies limited range of motion Neuro Denies focal weakness and Denies convulsions Psych Denies depression and Denies mood swings Physical Exam Const General: comfortable and no acute distress Resp Effort & Inspection: normal respiratory effort GI Other: All incisions are well healed and not infected Palpation (GI): Soft to palpation, not firm and nontender Assessment & Plan Assessment & Plan (1) S/P laparoscopic appendectomy: Code(s): Z90.49 - Acquired absence of other specified parts of digestive tract Category: Surgical Plan: She is doing very well postoperatively. All incisions are well healed. She has good oral intake I had advised her to avoid lifting anything more than 20 lb for at least 2 more weeks. She can otherwise follow up on a p.r.n. basis. Coding Level of Care Code Global (27784) Diagnoses S/P laparoscopic appendectomy Z90.49
== END 2023-12-18 15:55 | disposition home or self-care (01) ==
PROVIDERS: Visit Provider Surgery
DX: Z90.49 Acquired absence of other specified parts of digestive tract (principal)
CPT/HCPCS: 99024

== ENCOUNTER → 2023-12-18 15:47 | Outpatient (BNVA) | payer MEDICAID, SELFPAY | PROVIDERS: Visit Provider Surgery | DX: Z09 Encounter for follow-up examination after completed treatment for conditions other than malignant neoplasm (principal); Z87.19 Personal history of other diseases of the digestive system; Z90.49 Acquired absence of other specified parts of digestive tract | CPT/HCPCS: 99212 ==